=== PATIENT | female | born 1985 | race Caucasian/White ===

== ENCOUNTER 2022-07-25 06:28 | Emergency (ER) | payer OTHER ==
[~2022-07-25] VITALS: Ht 152.4 cm; Wt 70.4 kg
[2022-07-25] MEDS ORDERED: DIPH28.34 TP (06:52)
[2022-07-25] MEDS: ACETAMINOPHEN 325 MG TABLET PO ONE ×2 (07:23→07:36)
[2022-07-25 07:47] VITALS: BP 126/78
== END 2022-07-25 07:50 | disposition home or self-care (01) ==
LOC: EMS 06:28
DX: L98.9 Disorder of the skin and subcutaneous tissue, unspecified (principal)
CPT/HCPCS: 99283